=== PATIENT | male | born 1990 | race Caucasian/White ===

== ENCOUNTER 2021-06-08 19:33 | Emergency (ER) | payer BC ==
[2021-06-08 19:40] VITALS: RESP 18; TEMP 99
[2021-06-08 20:39] LABS: Basophils # (A) 0.1 k/uL (0-0.2); Basophils % (A) 1 %; Eosinophils # (A) 0.2 k/uL (0-0.7); Eosinophils % (A) 1 %; HCT 46.5 % (39.0-53.0); HGB 15.8 gm/dL (13.0-17.5); Lymphocytes # (A) 1.2 k/uL (1.0-4.8); Lymphocytes % (A) 9 %; MCH 30.4 pg (25.0-35.0); MCV 89.4 fL (80.0-100.0); Mean Platelet Volume 6.5; Monocytes # (A) 0.5 k/uL (0-1.0); Monocytes % (A) 4 %; Neutrophils # (A) 11.2 k/uL (1.3-7.7); Neutrophils % (A) 85 %; Platelet Count 273 k/uL (150-450); RDW 12.5 % (11.5-15.5); WBC 13.2 k/uL (3.8-10.6)
[2021-06-08 20:48] LABS: ALT 25 U/L (4-49); AST 28 U/L (17-59); African American GFR (CKD) >90 (>60 ml/min/1.73 sqM); Albumin 4.1 g/dL (3.5-5.0); Alkaline Phosphatase 65 U/L (38-126); Anion Gap 9 mmol/L; Blood Urea Nitrogen 12 mg/dL (9-20); Calcium 9.1 mg/dL (8.4-10.2); Carbon Dioxide 30 mmol/L (22-30); Chloride 101 mmol/L (98-107); Glucose 123 mg/dL (74-99); Non-African American GFR(CKD) >90 (>60 ml/min/1.73 sqM); Potassium 3.9 mmol/L (3.5-5.1); Sodium 140 mmol/L (137-145); Total Bilirubin 0.4 mg/dL (0.2-1.3); Total Protein 6.9 g/dL (6.3-8.2)
[2021-06-08 20:49] LABS: INR 0.9 (<1.2); Partial Thromboplastin Time 24.3 sec (22.0-30.0); Prothrombin Time 9.8 sec (9.0-12.0)
--- NOTE | 2021-06-08 20:53 | ED ---
Neuro HPI - General Chief Complaint: Neuro Symptoms/Deficit Stated Complaint: neck pain, facial numbness Source: patient Mode of arrival: ambulatory - History of Present Illness Is the patient presenting with stroke symptoms?: No Initial Comments: 31-year-old male with no past nuchal history presents emergency Department with reported right neck pain and left facial droop. She reports that his right neck pain started a week and a half ago. He went to 2 different chiropractors on Saturday and Saturday of this week. He did have HVLA performed on the neck. States he has had no improvement in his neck pain. He went to a urgent care where they placed him on prednisone and Flexeril. He is to take medications as directed without any improvement since he has extreme tenderness to palpation of the mastoid process on the right as well as his right ear. He denies any internal ear pain. No headaches or visual changes. Denies any numbness, [place] or weakness in his arms or legs. He woke this morning to numbness, tingling and dripping on the left side of his face. He once again went into an urgent care who sent him into the emergency room for further evaluation. No history of stroke. Denies any visual changes. No other alleviating, precipitating or modifying factors - Related Data Home Medications: Previous Rx's Medication Instructions Recorded Artificial Tears Ointment 1 gm OPHTHALMIC HS #1 oint...g. 06/08/21 [Lubrifresh Pm Ointment] Carboxymethylcellulose Sodium 2 drops LEFT EYE QID #1 bottle 06/08/21 [Refresh Tears] predniSONE [Deltasone] 60 mg PO DAILY #21 tab 06/08/21 valACYclovir HCL [Valtrex] 1,000 mg PO Q8HR #21 tab 06/08/21 Allergies/Adverse Reactions: Allergies Allergy/AdvReac Type Severity Reaction Status Date / Time No Known Allergies Allergy Verified 06/08/21 19:40 Review of Systems ROS Statement: Those systems with pertinent positive or pertinent negative responses have been documented in the HPI. ROS Other: All systems not noted in ROS Statement are negative. Stroke MDM - Lab Data Result diagrams: 06/08/21 20:30 06/08/21 20:30 Lab Results 06/08/21 06/08/21 06/08/21 Range/Units 20:30 20:30 20:30 WBC 13.2 H (3.8-10.6) k/uL RBC 5.20 (4.30-5.90) m/uL Hgb 15.8 (13.0-17.5) gm/dL Hct 46.5 (39.0-53.0) % MCV 89.4 (80.0-100.0) fL MCH 30.4 (25.0-35.0) pg MCHC 34.0 (31.0-37.0) g/dL RDW 12.5 (11.5-15.5) % Plt Count 273 (150-450) k/uL MPV 6.5 Neutrophils % 85 % Lymphocytes % 9 % Monocytes % 4 % Eosinophils % 1 % Basophils % 1 % Neutrophils # 11.2 H (1.3-7.7) k/uL Lymphocytes # 1.2 (1.0-4.8) k/uL Monocytes # 0.5 (0-1.0) k/uL Eosinophils # 0.2 (0-0.7) k/uL Basophils # 0.1 (0-0.2) k/uL PT 9.8 (9.0-12.0) sec INR 0.9 (<1.2) APTT 24.3 (22.0-30.0) sec Sodium 140 (137-145) mmol/L Potassium 3.9 (3.5-5.1) mmol/L Chloride 101 (98-107) mmol/L Carbon Dioxide 30 (22-30) mmol/L Anion Gap 9 mmol/L BUN 12 (9-20) mg/dL Creatinine 0.71 (0.66-1.25) mg/dL Est GFR (CKD-EPI)AfAm >90 (>60 ml/min/1.73 sqM) Est GFR (CKD-EPI)NonAf >90 (>60 ml/min/1.73 sqM) Glucose 123 H (74-99) mg/dL Calcium 9.1 (8.4-10.2) mg/dL Total Bilirubin 0.4 (0.2-1.3) mg/dL AST 28 (17-59) U/L ALT 25 (4-49) U/L Alkaline Phosphatase 65 (38-126) U/L Troponin I (0.000-0.034) ng/mL Total Protein 6.9 (6.3-8.2) g/dL Albumin 4.1 (3.5-5.0) g/dL 06/08/21 Range/Units 20:30 WBC (3.8-10.6) k/uL RBC (4.30-5.90) m/uL Hgb (13.0-17.5) gm/dL Hct (39.0-53.0) % MCV (80.0-100.0) fL MCH (25.0-35.0) pg MCHC (31.0-37.0) g/dL RDW (11.5-15.5) % Plt Count (150-450) k/uL MPV Neutrophils % % Lymphocytes % % Monocytes % % Eosinophils % % Basophils % % Neutrophils # (1.3-7.7) k/uL Lymphocytes # (1.0-4.8) k/uL Monocytes # (0-1.0) k/uL Eosinophils # (0-0.7) k/uL Basophils # (0-0.2) k/uL PT (9.0-12.0) sec INR (<1.2) APTT (22.0-30.0) sec Sodium (137-145) mmol/L Potassium (3.5-5.1) mmol/L Chloride (98-107) mmol/L Carbon Dioxide (22-30) mmol/L Anion Gap mmol/L BUN (9-20) mg/dL Creatinine (0.66-1.25) mg/dL Est GFR (CKD-EPI)AfAm (>60 ml/min/1.73 sqM) Est GFR (CKD-EPI)NonAf (>60 ml/min/1.73 sqM) Glucose (74-99) mg/dL Calcium (8.4-10.2) mg/dL Total Bilirubin (0.2-1.3) mg/dL AST (17-59) U/L ALT (4-49) U/L Alkaline Phosphatase (38-126) U/L Troponin I 0.025 (0.000-0.034) ng/mL Total Protein (6.3-8.2) g/dL Albumin (3.5-5.0) g/dL - Medical Decision Making Upon arrival the patient is placed in room 26. A thorough history and physical exam is performed. The patient does have notable facial droop on the left which involves his forehead. He is unable to blink his eye. I did recommend evaluation as the patient has had recent HVLA to the neck. IV is established, laboratories is a performed and the patient went for CT imaging of the brain. Laboratory studies are reviewed of the results I discussed the patient. CT of the brain as well as CT angiography of the head and neck demonstrate no acute findings. No signs of vertebral or carotid dissection. The patient is given 80 mg of prednisone in the emergency room as well as 1000 mg of valacyclovir and Lubrifresh eyedrops. He is instructed to instill the eye drops 4 times daily. He is to tape his eye closed at night. He'll be discharged home on prednisone and valacyclovir. He is to follow up with his primary care physician in 2-4 day s. Return to the emergency room for any new or worsening symptoms. Patient given a dose of Toradol and a Tylenol 3 starter pack for his right radicular pain. Patient discharged home in stable condition 06/08/21 20:52 EKG demonstrates a sinus tachycardia with a ventricular rate of 113. HI interval 182. QRS 102. QTC of 455. Q wave in lead 3 with an inverted T-wave in the inferior leads. No acute ST segment elevation Past Medical History Past Medical History: No Reported History History of Any Multi-Drug Resistant Organisms: None Reported Additional Past Surgical History / Comment(s): plate and screw in right ankle. Past Psychological History: No Psychological Hx Reported Smoking Status: Never smoker Past Alcohol Use History: None Reported Past Drug Use History: Marijuana Course Vital Signs 06/08/21 06/08/21 06/08/21 19:34 21:40 23:29 Temperature 99 F Pulse Rate 95 88 78 Respiratory 18 18 18 Rate Blood Pressure 121/84 138/86 136/81 O2 Sat by Pulse 99 98 98 Oximetry Disposition Clinical Impression: Facial droop, Molina's palsy Disposition: HOME SELF-CARE Condition: Stable Instructions (If sedation given, give patient instructions): Molina Palsy (ED) Additional Instructions: Please take the steroids and anti-viral as directed. Use the eye drops every 4 hours. Tape your eye closed as night. Follow up with your PCP in 2-4 days. Return to the ED for any new or worsening symptoms. Prescriptions: predniSONE [Deltasone] 60 mg PO DAILY #21 tab Artificial Tears Ointment [Lubrifresh Pm Ointment] 1 gm OPHTHALMIC HS #1 oint...g. Carboxymethylcellulose Sodium [Refresh Tears] 2 drops LEFT EYE QID #1 bottle valACYclovir HCL [Valtrex] 1,000 mg PO Q8HR #21 tab Is patient prescribed a controlled substance at d/c from ED?: No Referrals: None,Stated [Primary Care Provider] - 1-2 days Time of Disposition: 23:08
--- NOTE | 2021-06-08 21:28 | XR ---
EXAMINATION: XR chest 2V DATE AND TIME: 06/08/2021 9:08 PM CLINICAL INDICATION: PHH; altered mental status TECHNIQUE: Departmental protocol COMPARISON: None FINDINGS: The lungs are clear. The pleural spaces are negative. The cardiac silhouette is not enlarged. The remainder of the mediastinal silhouette is unremarkable. The skeletal structures and soft tissues are negative for acute findings. IMPRESSION: NO ACUTE PROCESS.
--- NOTE | 2021-06-08 21:38 | CT ---
EXAMINATION: CT brain wo con DATE AND TIME: 06/08/2021 9:23 PM CLINICAL INDICATION: Neuro deficit, acute, stroke suspected TECHNIQUE: Standard departmental protocol Total DLP:1132.8mGy-cm COMPARISON: None. FINDINGS: The calvarium is intact. There is no intracranial hemorrhage. There is no intracranial mass or mass effect. No definite new intra-axial or extra-axial attenuation defect. The paranasal sinuses, middle ear cavities, and mastoid sinus air cells are clear. The orbits are unremarkable. IMPRESSION: NO ACUTE PROCESS.
--- NOTE | 2021-06-08 22:33 | CT ---
EXAMINATION TYPE: CT angio head neck DATE OF EXAM: 06/08/2021 COMPARISON: None HISTORY: Neuro deficits, neck pain, facial numbness. CT DLP: 514.1 mGycm Automated exposure control for dose reduction was used. CONTRAST: Performed with IV Contrast, patient injected with 65 mL of Isovue 370. Images obtained from the aortic arch to the vertex of the brain with IV contrast. There are 3-D post processed images. There is normal branching pattern of the great vessels on the aortic arch. There is bilateral arteria l flow in the subclavian arteries. There is arterial flow in the common internal and external carotid arteries bilaterally. There is wide patency of the carotid artery bifurcations. There is arterial fl ow in both vertebral arteries which appear fairly normal. There is arterial flow in the vertebrobasil ar artery system. There is no evidence of carotid or vertebral artery aneurysm or dissection. There is arterial flow in the anterior middle and posterior cerebral arteries. There is no mass effec t. I see no evidence of intracranial aneurysm or neovascularity. There is normal enhancement of the v enous sinuses. There is no evidence of intracranial arterial stenosis. IMPRESSION: Normal CT angiogram of the neck. Normal CT angiogram of the brain.
[2021-06-08] MEDS ORDERED: predniSONE 20 MG TAB PO STA (22:40)
[2021-06-08] MEDS ORDERED: ARTIFICIAL TEARS OINTMENT 3.5 GM TUBE LEFT EYE ONE (22:45)
[2021-06-08] MEDS ORDERED: valACYclovir HCL 1,000 MG TABLET PO ONE (22:45)
[2021-06-08] MEDS ORDERED: KETOROLAC 15 MG/ML 1 ML VIAL IVP STA (23:07)
[2021-06-08] MEDS ORDERED: ACET/COD 300 MG/30 MG STARTER PACK 6 TAB BTL PO STA (23:07)
[2021-06-08 23:32] VITALS: BP 136/81; PULSE 78
== END 2021-06-08 23:45 | disposition home or self-care (01) ==
LOC: EC 19:33
DX: G51.0 Bell's palsy (principal)
CPT/HCPCS: 36415 ×2; 93005; 80053; 84484; 85025; 85610; 85730; 71046; 70496; 70450; 70498; 99285; 96374; J1885; J7512; Q9967

== ENCOUNTER 2021-07-27 13:49 | Emergency (ER) | payer BC ==
[2021-07-27 14:18] VITALS: BP 127/80; PULSE 82; RESP 20; TEMP 98.3
--- NOTE | 2021-07-27 16:08 | ED ---
General Adult HPI - General Chief complaint: Skin/Abscess/Foreign Body Stated complaint: Rash on face Time Seen by Provider: 07/27/21 15:35 Source: patient Mode of arrival: ambulatory Limitations: no limitations - History of Present Illness Initial comments: 31-year-old well-appearing white male patient presents to the emergency room with complaints of an intermittent rash to his face, bilateral upper extremities, bilateral lower extremities, and back for past two weeks. Patient states that he did call his primary care doctor who could not fit him in today and referred him to come to the emergency room. Patient denies any headaches, nausea vomiting or fevers. He states that the rash to his face has now slightly resolved. He did just finish a steroid pack today. -: week(s) (2) Location: face, back, left, right, upper extremity, lower extremity Severity scale (1-10): 0 Consistency: intermittent Improves with: other (Steroid) Worsens with: none Associated Symptoms: denies other symptoms Treatments Prior to Arrival: other (Steroids and Benadryl) - Related Data Previous Rx's Medication Instructions Recorded Artificial Tears Ointment 1 gm OPHTHALMIC HS #1 oint...g. 06/08/21 [Lubrifresh Pm Ointment] Carboxymethylcellulose Sodium 2 drops LEFT EYE QID #1 bottle 06/08/21 [Refresh Tears] predniSONE [Deltasone] 60 mg PO DAILY #21 tab 06/08/21 valACYclovir HCL [Valtrex] 1,000 mg PO Q8HR #21 tab 06/08/21 Allergies Allergy/AdvReac Type Severity Reaction Status Date / Time No Known Allergies Allergy Verified 07/27/21 14:18 Review of Systems ROS Statement: Those systems with pertinent positive or pertinent negative responses have been documented in the HPI. ROS Other: All systems not noted in ROS Statement are negative. 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 Past Psychological History: No Psychological Hx Reported Smoking Status: Never smoker Past Alcohol Use History: None Reported Past Drug Use History: Marijuana General Exam Limitations: no limitations General appearance: alert, in no apparent distress Head exam: Present: atraumatic, normocephalic, normal inspection Eye exam: Present: normal appearance, PERRL, EOMI. Absent: scleral icterus, conjunctival injection, periorbital swelling ENT exam: Present: normal exam, normal oropharynx, mucous membranes moist Neck exam: Present: normal inspection, full ROM. Absent: tenderness, meningismus, lymphadenopathy, thyromegaly Respiratory exam: Present: normal lung sounds bilaterally. Absent: respiratory distress, wheezes, rales, rhonchi, stridor Cardiovascular Exam: Present: regular rate, normal rhythm, normal heart sounds. Absent: systolic murmur, diastolic murmur, rubs, gallop, clicks GI/Abdominal exam: Present: soft, normal bowel sounds. Absent: distended, tenderness, guarding, rebound, rigid Extremities exam: Present: normal inspection, full ROM, normal capillary refill. Absent: tenderness, pedal edema, joint swelling, calf tenderness Back exam: Present: normal inspection, full ROM. Absent: tenderness, CVA tenderness (R), CVA tenderness (L), rash noted Neurological exam: Present: alert, oriented X3, CN II-XII intact, normal gait Psychiatric exam: Present: normal affect, normal mood Skin exam: Present: warm, dry, intact, normal color, other (Macular papular rash to bilateral forearms and hands, slight redness to the left forehead and bilateral maxillary arches). Absent: rash, cyanosis, diaphoretic Course Vital Signs 07/27/21 14:10 Temperature 98.3 F Pulse Rate 82 Respiratory 20 Rate Blood Pressure 127/80 O2 Sat by Pulse 97 Oximetry Medical Decision Making - Medical Decision Making This is a well-appearing patient with no focal neurological deficits. He states that this rash has been coming and going over the past 2 weeks. He has seen a doctor and was prescribed steroids which he finished today . He denies any fevers, headaches, nausea vomiting or diarrhea. He has no pain with eye movement. There is no evidence of erysipelas. He is directed to follow up with dermatology for continuation of care and return to the emergency room with any new or worsening symptoms including fever or headache. Case discussed with Dr. Mccormack Disposition Clinical Impression: Rash and nonspecific skin eruption Disposition: HOME SELF-CARE Condition: Good Instructions (If sedation given, give patient instructions): Acute Rash (ED) Additional Instructions: Follow-up with dermatology and/or your primary care doctor within the next week. Return to the emergency room with any new or worsening symptoms including headaches, fever or nausea vomiting. Is patient prescribed a controlled substance at d/c from ED?: No Referrals: Saulo Chávez MD [Primary Care Provider] - 1-2 days Cody Moreno MD [STAFF PHYSICIAN] - 1-2 days Time of Disposition: 16:07
== END 2021-07-27 17:16 | disposition home or self-care (01) ==
LOC: EC 13:49 → SUPCPDRO 13:49 → EC 17:16
DX: R21 Rash and other nonspecific skin eruption (principal)

== ENCOUNTER 2023-05-07 09:57 | Day surgery (SDC) | payer BC ==
[~2023-05-07 09:57] MED LIST: DEXAMETHASONE SOD PHOSPHATE 4 MG/ML 1 ML VIAL IV ONE; HYDROmorphone 0.5 MG/0.5 ML SYRINGE IVP PRN; LACTATED RINGERS 1,000 ML IV SCH; ONDANSETRON 4 MG/2 ML VIAL IVP ONE; Pre Op ABX Message 1 EACH MISC MISCELLANE ONE
[2023-05-07] MEDS ORDERED: MIDAZOLAM 2 MG/2 ML VIAL ONE (10:58)
[2023-05-07] MEDS ORDERED: fentaNYL (PF) 50 MCG/ML 2 ML AMP ONE (10:58)
[2023-05-07] MEDS ORDERED: ROCURONIUM 10 MG/ML (5 ML VIAL) IV ONE (10:58)
[2023-05-07] MEDS ORDERED: LIDOCAINE 2% INJ 20 MG/ML (2 ML VIAL) ONE (10:58)
[2023-05-07] MEDS ORDERED: PROPOFOL 10 MG/ML 20 ML VIAL IV ONE (10:58)
[2023-05-07] MEDS ORDERED: KETOROLAC 15 MG/ML 1 ML VIAL ONE (10:58)
[2023-05-07] MEDS ORDERED: SUCCINYLCHOLINE CHLORIDE 200 MG/10 ML VIAL IV ONE (10:58)
[2023-05-07] MEDS ORDERED: ceFAZolin 3,000 MG in SODIUM CHLORIDE 0.9% IRRIGATIO 3,000 ML IRRIGATION ONE (11:03)
[2023-05-07] MEDS ORDERED: SODIUM CHLORIDE 0.9% 100 ML with ceFAZolin 2,000 MG IV ONE ×2 (11:03)
[2023-05-07] MEDS ORDERED: BUPIVACAINE (PF) 0.25% 30 ML VIAL SQ ONE (11:27)
--- NOTE | 2023-05-07 11:46 | P.OP ---
Date of Procedure: 05/07/23 Preoperative Diagnosis: Chronic synovitis right knee Postoperative Diagnosis: 1. Torn lateral meniscus right knee 2. Loose bodies 3. Synovitis Procedure(s) Performed: 1. Arthroscopy of the right knee with partial lateral meniscectomy (10% of the meniscus excised) 2. Arthroscopic removal of loose bodies 3. Partial synovectomy of the medial femoral, lateral femoral, patellofemoral compartments Anesthesia: BRENDAA Surgeon: Sanchez Mcgowan Estimated Blood Loss (ml): 5 Pathology: none sent Condition: stable Disposition: PACU Indications for Procedure: This is a 33-year-old gentleman that has had recurrent effusions of his right knee with multiple aspirations. There was concern for infection but the cultures have been negative for any infection. Continues to have effusions pain. There is concern for a autoimmune or rheumatologic process causing the effusions. After discussing the surgical nonsurgical treatment options with him at length he wishes to proceed with an arthroscopic debridement of his right knee, and informed consent was obtained. Operative Findings: The operative findings are consistent with a torn lateral meniscus, synovitis, and multiple loose bodies. Description of Procedure: Patient was seen and evaluated in the preoperative area, the operative site was marked with a skin marker. The patient was then brought to the operating room and given 2 g of Ancef intravenously. A general anesthetic was administered by the anesthesia department. Tourniquet was placed on the right upper thigh and the left lower extremity was then prepped and draped in usual sterile fashion. A universal timeout was then performed confirming the patient's name, surgical site, ALLERGIES, and consent. The limb was then exsanguinated and tourniquet insufflated to 250 mmHg. Standard inferior medial and inferior lateral portals were established in the knee. The trochar was inserted in the inferolateral portal. Examination began at the patellofemoral joint. There was a large amount of synovitis and multiple loose bodies. Next the medial compartment was visualized. The medial meniscus was intact. There was no evidence of chondral malacia. There was a large amount of synovitis and multiple loose bodies. The notch area was then visualized and the ACL was intact. The Lateral compartment was then visualized and there was a tear of the posterior horn of the lateral meniscus. There was no evidence of chondromalacia, but a large amount of synovitis and multiple loose bodies. Next, using an arthroscopic shaver and a biter, a partial lateral meniscectomy was also performed with approximately 10% of the lateral meniscus excised. A partial synovectomy is performed the medial femoral, lateral femoral, patellofemoral compartments. The loose bodies were removed arthroscopically. Knee was then copiously irrigated with Ancef and the irrigation fluid. The instruments removed, incisions were closed with 4-0 nylon. 30 mL of quarter percent plain Marcaine was injected sterilely into the surgical area. A sterile dressing was then applied, and the tourniquet was released. Patient was then transferred to recovery room in stable condition.condition.
[2023-05-07 11:56] VITALS: TEMP 97
[2023-05-07] MEDS ORDERED: MEPERIDINE 50 MG/ML SYRINGE IVP ONE (11:56)
[2023-05-07 12:43] VITALS: RESP 18
[2023-05-07] MEDS ORDERED: HYDROcodone/APAP 7.5-325MG 1 EACH TAB ONE (13:10)
[2023-05-07 13:13] VITALS: PULSE 78
[2023-05-07 13:33] VITALS: BP 147/94
== END 2023-05-07 13:43 | disposition home or self-care (01) ==
LOC: OR 09:57
PROVIDERS: ATTEND Orthopaedic Surgery
DX: S83.281A Other tear of lateral meniscus, current injury, right knee, initial encounter (principal); M65.861 Other synovitis and tenosynovitis, right lower leg; M23.41 Loose body in knee, right knee; K21.9 Gastro-esophageal reflux disease without esophagitis; Z79.899 Other long term (current) drug therapy; Z86.59 Personal history of other mental and behavioral disorders; X58.XXXA Exposure to other specified factors, initial encounter
CPT/HCPCS: 29881; J2250; J0330; J1100; J2175; J2405; J0690; J3010; J1885; J2704; J2001